=== PATIENT | male | born 1930 | race Caucasian/White ===

== ENCOUNTER 2018-01-21 09:49 | Day surgery (SDC) | payer OTHER ==
[2018-01-21] MEDS ORDERED: NA CHLORIDE 0.9% 1,000 ML ONE (10:16)
[2018-01-21] MEDS ORDERED: FENTANYL CITR 100 MCG/2 ML ONE (10:57)
[2018-01-21] MEDS ORDERED: LIDOCAINE 2% MPF 5 ML VIAL ONE (10:57)
[2018-01-21] MEDS ORDERED: PROPOFOL 200 MG/20 ML VIAL IV ONE (10:57)
[2018-01-21] MEDS ORDERED: BUPIVACA 0.5%/EPI 0.0005%/PF 30 ML VIAL ONE (10:58)
[2018-01-21] MEDS ORDERED: LIDOCAINE 1% W/EPI 1:100,000 MDV 50 ML VIAL ONE (10:58)
[2018-01-21] MEDS ORDERED: Phenylephrine HCl 10 MG/ML 1 ML VIAL ONE (11:30)
[2018-01-21] MEDS ORDERED: MINERAL OIL, LITE 10 ML VIAL ONE (12:13)
--- NOTE | 2018-01-21 16:47 | OP ---
Date of Procedure: 01/21/2018 Surgeon: Josi Sun MD Postoperative Diagnosis: Squamous cell carcinoma, right scalp. Postoperative Diagnosis: Squamous cell carcinoma, right scalp. Procedure: Excision of malignant skin lesion of the scalp, total defect 6 x 6 cm and split-thickness skin graft donor, site left thigh. Indication For Procedure: Mr. 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 He underwent biopsy and curettage and cautery at the tissue rewinder's office and was receiv ing superficial kilovoltage radiation treatments. Approximately half way through the planned treatme nt course, he was noted to have significant necrosis with an increasing mold border along the edges o f the wound and there was concern for a nonresponse or progression of his skin cancer and he was refe rred to head and neck surgery for further evaluation. In the clinic, he was noted to have a 4-cm ulc erated lesion over the right mastoid scalp. The risks, benefits, and alternatives to the procedure w ere discussed with the patient's family. We discussed that typical standard care for large squamous cell carcinomas of the skin typically include evaluation of the eduar basin by imaging and/or neck di ssection. Given the patient's advanced age and medical comorbidities, decision was made with the fam gloria to forego a thorough eduar evaluation with a treatment goal to palliate his condition, reduce felicia n and foul odor, and promote overall healing of the wound. Description Of Procedure In Detail: The patient was brought to the operating room. He was placed un grace general anesthesia via laryngeal mask airway. The patient's left thigh and right neck and scalp and ear were prepped with Betadine. A magnet was applied over the patient's pacemaker to avoid any i nterference during Bovie electrocauterization and care was taken to apply the grounding pad to the ri ght thigh in accordance with [employer] sales representative electric service's consultation. The right mastoid scalp was ev aluated and the area around the lesion was injected with 6 mL of 0.5% Marcaine with epinephrine. A g ross margin of approximately 5 mm was designed around the lesion. The Bovie electrocautery was used to incise along this planned incision and full-thickness skin was undertaken. Palpably, the tumor an d indurated region were very thick and deep plane of dissection was taken down to the muscular layer. A suture was placed to indicate 12 o'clock, which was the most anterior aspect of the wound just be hind the patient's earlobe. The specimen was elevated and divided from all soft tissue attachments u sing Bovie electrocautery. Several small vessels were clamped and cauterized during the dissection. The specimen was sent to pathology for frozen section analysis. In consultation with the pathologis t, gross examination of the specimen was undertaken and there was concern for the duration of frozen section due to the number of required plates. Grossly by and by palpation, the peripheral margins ramirez d an overall low suspicion for positivity and decision was made to perform a frozen cross-section as a sales representative electric service of the deep margins and defer the peripheral margins to permanent section. Again du e to the patient's medical comorbid comorbidities, there was a desire to limit the overall duration o f anesthesia and i agreed with the pathologist's plan of action. The sales representative electric service deep section georgina wed significant areas of necrosis without any clear evidence of tumor cells and there was a several m illimeter thick area of muscle and connective tissue. Without clear suggestion of a positive margin, the decision was made to proceed with skin graft for closure. The defect was measured and was 5.5 x 5.5 cm. The patient's left side, which had been previously prepped and draped was exposed and the Z immer dermatome was prepared for collection of the skin graft. The 3-inch width blade was selected. A 0.20 thickness skin graft was collected and appropriate modifications were made to the dermatome. An approximately 3 x 3 inch specimen was collected from the patient's left thigh. Direct pressure w as applied with a gauze to the donor site and the skin graft was brought up to the recipient site on the right scalp. The skin graft was attached circumferentially with interrupted 3-0 nylon sutures in an 8 point fashion. The corners of the skin graft were carefully trimmed to the appropriate side an d a running 4-0 chromic suture was used to approximate all the edges of the skin graft. Several smal l pie-crusting incisions were made within the skin graft once it was securely attached in order to al low for egress of the small amount of fluid and to allow for egress of air bubbles in order to improv e adherence of the skin graft to the recipient site. A Xeroform bolster was applied and the previous ly placed nylon sutures were used to secure the bolster to the patient's scalp. Gauze dressing and A ce bandage were applied to the surgical site. Attention was then turned to the left thigh donor site . The donor site was injected with 0.5% Marcaine with epinephrine to aid in postoperative pain contr ol and to decrease the degree of oozing. A Xeroform dressing was applied and the thigh was wrapped in Kerlix. The patient was then returned to care of anesthesia for awakening and extubation in the ope rating room, which proceeded without difficulty. The magnet was removed from the patient's chest wal l and the patient's pacemaker appeared to resume its normal function. Disposition: The patient will be discharged home later today in the care of his family and will foll ow up with Dr. Sun in 6 days for removal of ulcer and assessment of wound. MOUNA/LUC Voice ID: [id number] Report ID: [id number]
== END 2018-01-21 14:37 | disposition home or self-care (01) ==
LOC: OR 09:49
PROVIDERS: ATTEND Otolaryngology
PROC: 0HRJX74 Replacement of Left Upper Leg Skin with Autologous Tissue Substitute, Partial Thickness, External Approach (ICD-10-PCS; principal; 2018-01-21 11:00)
DX: C44.42 Squamous cell carcinoma of skin of scalp and neck (principal); E11.9 Type 2 diabetes mellitus without complications; Z79.01 Long term (current) use of anticoagulants; Z95.0 Presence of cardiac pacemaker; F03.90 Unspecified dementia, unspecified severity, without behavioral disturbance, psychotic disturbance, mood disturbance, and anxiety; Z88.6 Allergy status to analgesic agent; Z88.8 Allergy status to other drugs, medicaments and biological substances
CPT/HCPCS: 00300; 11626; 15120; 15121; 82962 ×2; 88305; 88331; J2370; J3010; J7030